=== PATIENT | female | born 1970 | race Caucasian/White ===

== ENCOUNTER → 2019-08-10 | Outpatient (REF) | payer OTHER | LOC: M SFHCWAGY 08:50 | PROVIDERS: ATTEND Nurse Practitioner Women's Health | DX: R87.610 Atypical squamous cells of undetermined significance on cytologic smear of cervix (ASC-US) (principal) ==

== ENCOUNTER → 2019-08-10 | Outpatient (CLI) | payer OTHER ==
--- NOTE | 2019-08-24 15:11 | REPMRS ---
Patient History The patient states she had a clinical breast exam in July 2019. Patient is postmenopausal and is nulliparous. Family history of unknown cancer in father. Digital Woman Screen Mammo: August 10, 2019 - Exam #: [id number] Bilateral CC and MLO view(s) were taken. Technologist: Jasmina Conde, Technologist Prior study comparison: May 01, 2018, bilateral digital woman screen mammo, performed at [facility]. FINDINGS: The breast tissue is almost entirely fat. The Volpara volumetric breast density category is: A. There has been no change in the appearance of the mammogram from the prior studies. There is no interval development of dominant mass, architectural distortion, or grouped microcalcification typical of malignancy. 3-D tomosynthesis shows no additional findings. Assessment: BI-RADS/ACR category 1 mammogram. Negative Mammogram. Recommendation Routine screening mammogram of both breasts in 1 year (for women over age 40). This patient's Lifetime Breast Cancer RIsk is estimated at 12.0 %. This mammogram was interpreted with the aid of an FDA-approved computer-aided dectection system. Electronically Signed By: Edison Jain MD 08/24/19 2803
== END ==
LOC: M WHC 15:05
PROVIDERS: ATTEND Nurse Practitioner Women's Health
DX: Z12.31 Encounter for screening mammogram for malignant neoplasm of breast (principal); Z78.0 Asymptomatic menopausal state; Z80.8 Family history of malignant neoplasm of other organs or systems

== ENCOUNTER → 2020-04-25 | Outpatient (CLI) | payer OTHER ==
[~2020-04-25] MED LIST: GASTROGRAFIN SOLUTION 30ML (Q9963) As Ordered ONE; ISOVUE-370 76% 100ML VIAL As Ordered ONE
--- NOTE | 2020-04-26 10:47 | REP ---
INDICATION: VENTRAL HERNIA. COMPARISON: None TECHNIQUE: Axial contrast-enhanced images from the lung bases to the pubic symphysis using oral and 100 cc Isovue 370 intravenous contrast material. Coronal and sagittal reformations obtained. This CT examination was performed using the following dose reduction techniques: Automated exposure control, adjustment of mA and/or kv according to the patient's size, and the use of iterative reconstruction technique. FINDINGS: There appears to be eventration of the anterior abdominal wall and possible associated ventral hernia along the right mid to lower abdomen/pelvis which contain fat and nonobstructed bowel. Liver, spleen, pancreas, gallbladder, left kidney and right adrenal gland are normal. Left adrenal gland includes 1.5 cm adenoma. Right kidney suggests small punctate nonobstructing calculi. There is no evidence for bowel obstruction or acute inflammatory process. Pelvis demonstrates normal bladder and age-appropriate uterus/right adnexa. There is a complex septated left adnexal cyst measuring 4.5 x 6.6 x 4.0 cm. No ascites. No free air. No adenopathy. Abdominal aorta without aneurysm or dissection. Skeletal structures demonstrate age-related degenerative changes without acute osseous abnormality. Lung bases are clear. IMPRESSION: 1. Eventration along the right anterior abdominal versus wide ventral hernia contains fat and nonobstructed bowel. No associated inflammatory changes or obstruction noted. 2. 6.6 cm complex septated left adnexal cyst warrants follow-up. 3. Further nonacute findings as described above. <Electronically signed by Andrew Love > 04/26/20 1043
== END ==
LOC: M RAD 10:45
PROVIDERS: ATTEND Internal Medicine Gastroenterology
DX: K43.9 Ventral hernia without obstruction or gangrene (principal)
CPT/HCPCS: 74177; Q9963; Q9967

== ENCOUNTER → 2020-04-28 | Outpatient (CLI) | payer OTHER ==
[~2020-04-28] MED LIST changes: +E-Z-GAS II EFFERVESCENT PACKET (SODIUM BICARB./CITRIC ACID/SIMETHICONE) As Ordered ONE; +E-Z-HD 98% w/w 340GM SUSP BTL As Ordered ONE; +E-Z-PAQUE 96% w/w SUSP 176GM BTL As Ordered ONE; -GASTROGRAFIN SOLUTION 30ML (Q9963) As Ordered ONE; -ISOVUE-370 76% 100ML VIAL As Ordered ONE
--- NOTE | 2020-04-28 17:22 | REP ---
INDICATION: VENTRAL HERNIA, ABD PAIN, EVAL FOR ADHESIONS. COMPARISON: None TECHNIQUE: This procedure was performed by May Draper [facility], under the direct supervision of Dr. Jain. Images were reviewed with Dr. Jain prior to dictation. Liquid barium and gas producing crystals were given in the erect position, as well as liquid barium in the prone oblique position in order to perform a double contrast upper GI examination. Additionally liquid barium was given at the end of the examination in order to perform a small-bowel follow-through. FINDINGS: The vaccines solutions specialist film shows no organomegaly or pathological masses. The intestinal gas pattern is unremarkable. The oral and pharyngeal stages of deglutition were unremarkable. Flash penetration was visualized. Esophageal transport is prompt and efficient and there is no evidence of esophagitis, stricture, or mucosal ring. There is no evidence of a hiatal hernia. There was no gastroesophageal reflux noted . The stomach ruiz are normally outlined. The rugal folds are smooth and regular. There is no gastritis, neoplasm, or ulcerative disease. The duodenal ruiz are normally outlined. There is a diverticulum of the 3rd portion of the duodenum. The mucosal folds are smooth and regular. There is no duodenitis, peptic ulcer disease or neoplasm. The visualized portion of the proximal small bowel appears normal in course and caliber. The barium column was followed through the small bowel to the level of the terminal ileum. Small bowel transit time is approximately 150 minutes. During fluoroscopy gentle palpation shows all loops are freely movable and pliable. There is no fixed angulated loops. The small bowel mucosal pattern is normal in course and caliber. There is no transition to suggest a partial small bowel obstruction. Spot filming of the terminal ileum shows it to be unremarkable. IMPRESSION: 1. Flash penetration. 2. 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 3. Unremarkable small bowel follow-through. 0.5 minutes of fluoroscopy time was utilized for this procedure. Some fluoroscopic images are performed with last image hold technology. These images require no additional radiation. <Electronically signed by May Draper > 04/28/20 1600 <Electronically signed by Edison Jain > 04/28/20 1575
== END ==
LOC: M RAD 07:54
PROVIDERS: ATTEND Internal Medicine Gastroenterology
DX: K43.9 Ventral hernia without obstruction or gangrene (principal)

== ENCOUNTER → 2020-06-19 | Outpatient (CLI) | payer OTHER ==
--- NOTE | 2020-06-19 16:33 | REP ---
INDICATION: OTHER OVARIAN CYST, LEFT SIDE/ LABS 1ST. COMPARISON: Abdomen/pelvis CT dated 04/25/2020 and identified a left adnexal cyst. TECHNIQUE: Multiple sonographic images of the pelvis including transabdominal, endovaginal and Doppler ultrasound. FINDINGS: The uterus is anteverted and small size measuring 4.9 x 2.4 x 2.4 cm. The endometrium is not thickened measuring 3.7 mm. Right ovary: The right ovary is normal size measuring 2.4 x 1.3 x 1.0 cm. There are no dominant right ovarian mass or cyst. Left ovary: The left ovary is enlarged measuring 6.7 x 2.9 x 5.5 cm. The left ovary contains a large complex multi septated cyst measuring 5.7 x 2.2 x 5.2 cm. There is no free fluid in the pelvis. There is vascular flow in both ovaries with Doppler evaluation. The Doppler resistive index in the parenchymal arteries of the right ovary is 0.56 and left ovary 0.67. IMPRESSION: Large complex left adnexal cyst containing septations maximally measuring 5.7 cm. <Electronically signed by Andrew Borja > 06/19/20 1909
== END ==
LOC: M LAB 13:57
PROVIDERS: ATTEND Obstetrics & Gynecology
DX: N83.292 Other ovarian cyst, left side (principal)

== ENCOUNTER → 2020-07-06 | Outpatient (CLI) | payer OTHER ==
--- NOTE | 2020-07-06 12:06 | REP ---
INDICATION: DDD, THORACIC PAIN. COMPARISON: CT abdomen pelvis 04/25/2020 TECHNIQUE: Sagittal T1, T2, stir images of the lumbar spine are obtained. Axial T1 and T2 weighted images obtained. FINDINGS: On the sagittal T2 weighted images, there is [id number] multilevel degenerative disc disease, appears slightly more progressed at the L5-S1 level. Vertebral heights are overall preserved. No malalignments. On the sagittal T2 weighted images, the conus ends normally at L1 level. There is no significant canal stenosis at lumbar levels. On the review of axial images, At L1-2 through L3-4 no significant canal or foraminal narrowing. At L4-5 global disc bulge with mild bilateral foraminal narrowing and no significant canal stenosis. At L5-S1 loss of disc height with moderate bilateral foraminal narrowing that appears greater on the right. No significant canal stenosis at this level. IMPRESSION: Mild, multilevel degenerative disc disease. No limiting canal stenosis or high-grade foraminal stenosis. At L5-S1 loss of disc height with moderate bilateral foraminal narrowing that appears greater on the right. <Electronically signed by Anderson Greenberg > 07/06/20 [id number]
== END ==
LOC: M RAD 09:20
PROVIDERS: ATTEND Physician Assistant
DX: M51.37 Other intervertebral disc degeneration, lumbosacral region (principal)

== ENCOUNTER → 2020-07-06 | Outpatient (CLI) | payer OTHER ==
--- NOTE | 2020-07-06 12:03 | REP ---
INDICATION: PAIN IN THORACIC SPINE. COMPARISON: None. TECHNIQUE: Sagittal T1, T2, stir images of the thoracic spine are obtained. Axial T1 and T2 weighted images are obtained. FINDINGS: There is [id number] multilevel degenerative disc disease with loss of disc height and disc desiccation seen diffusely throughout the thoracic spine. Vertebral heights are overall preserved. No malalignments. On the sagittal T2 weighted images, no limiting canal stenosis. Thoracic cord appears normal in its course, caliber and signal characteristics. On the review of axial images, there are shallow disc protrusions at midthoracic level, greater on the left, which mildly narrow the central canal but no significant impingement of the thoracic cord, and no definite limiting foraminal stenosis or focal disc herniation. IMPRESSION: No acute findings. No disc herniations, no limiting canal or foraminal stenosis. <Electronically signed by Anderson Greenberg > 07/06/20 1155
== END ==
LOC: M RAD 09:18
PROVIDERS: ATTEND Physician Assistant
DX: M51.37 Other intervertebral disc degeneration, lumbosacral region (principal)

== ENCOUNTER → 2020-07-25 | Outpatient (CLI) | payer OTHER ==
--- NOTE | 2020-07-25 09:31 | REP ---
INDICATION: OVARIAN CYST. COMPARISON: 06/19/2020 TECHNIQUE: Transvesical and transvaginal imaging FINDINGS: The uterus measures 4.4 x 2.1 x 2.6 cm. The parenchymal echo pattern is unchanged. The endometrial echo complex measures 8 mm in its greatest thickness. Right ovary measures 2.1 x 1.2 x 1.1 cm and is within normal limits. Left ovary measures 6.6 x 2.7 x 6.3 cm. Within the left adnexa there is a complex 5.9 x 2.5 x 5.2 cm sized cystic mass. The urinary bladder was empty and could not be measured IMPRESSION: Complex left adnexal cystic mass essentially unchanged. <Electronically signed by Benson Ayers > 07/25/20 0927
== END ==
LOC: M RAD 08:27
PROVIDERS: ATTEND Obstetrics & Gynecology
DX: N83.292 Other ovarian cyst, left side (principal)

== ENCOUNTER → 2020-11-30 | Outpatient (CLI) | payer OTHER ==
[~2020-11-30] MED LIST changes: -E-Z-GAS II EFFERVESCENT PACKET (SODIUM BICARB./CITRIC ACID/SIMETHICONE) As Ordered ONE; -E-Z-HD 98% w/w 340GM SUSP BTL As Ordered ONE; -E-Z-PAQUE 96% w/w SUSP 176GM BTL As Ordered ONE; +GASTROGRAFIN SOLUTION 30ML (Q9963) As Ordered ONE; +ISOVUE-370 76% 100ML VIAL As Ordered ONE
--- NOTE | 2020-12-01 08:43 | REP ---
INDICATION: ABD PAIN. COMPARISON: 04/25/2020 TECHNIQUE: Axial contrast-enhanced images from the lung bases to the pubic symphysis using oral and 100 cc Isovue 370 intravenous contrast material. Coronal and sagittal reformations obtained. This CT examination was performed using the following dose reduction techniques: Automated exposure control, adjustment of mA and/or kv according to the patient's size, and the use of iterative reconstruction technique. FINDINGS: Liver demonstrates mild fatty infiltration. The adrenal glands demonstrate small stable benign adenomas. Spleen, pancreas, gallbladder, and kidneys are normal. 3 mm nonobstructing right renal calculus is suspected. The current examination demonstrates relatively recent postoperative changes in the midline subcutaneous tissue including small amount of fluid, inflammatory stranding and granulation tissue. There is a moderate to large new right lateral ventral hernia (spigelian hernia) containing nonobstructed loops of small and large bowel. Remainder of the enteric system is without obstruction or acute inflammatory process. Normal terminal ileum and appendix are identified in the right lower quadrant. Evidence for prior partial sigmoid resection. Pelvis demonstrates normal bladder and age-appropriate uterus/right adnexa. Tubular cystic structure in the left adnexa is again noted and may represent hydrosalpinx. No ascites. No free air. No intraperitoneal or retroperitoneal adenopathy. Abdominal aorta and vasculature appear normal. Musculoskeletal structures are intact and without acute osseous abnormality. IMPRESSION: 1. Postsurgical changes in the midline anterior abdominal wall with small amount of fluid. Correlation and follow-up is recommended to exclude the possibility of forming small phlegmon/abscess. 2. New right lateral ventral (spigelian) hernia containing nonobstructed loops of small and large bowel. 3. Stable tubular structure in the left adnexa suggesting hydrosalpinx. <Electronically signed by Andrew Love > 12/01/20 0402
== END ==
LOC: M RAD 12:11
PROVIDERS: ATTEND Family Medicine Addiction Medicine
DX: R10.9 Unspecified abdominal pain (principal)
CPT/HCPCS: 74177; Q9963; Q9967

== ENCOUNTER → 2021-01-26 | Outpatient (CLI) | payer OTHER ==
--- NOTE | 2021-01-26 14:49 | REP ---
INDICATION: OTH OVARIAN CYST LT SIDE. COMPARISON: 07/25/2020 TECHNIQUE: Transvesical and transvaginal imaging FINDINGS: The uterus measures 3.5 x 2.1 x 2.2 cm and is unchanged. The endometrial echo complex measures 2 mm in thickness and is unchanged. The right ovary measures 1.9 x 1.2 x 2 cm and is unchanged with an RI 0.43 The left ovary was not visualized transvesical air transvaginally. Large serpiginous appearing tubular shaped nearly anechoic structures are seen in the left adnexa. Urinary bladder was empty IMPRESSION: The left ovary was not visualized on today's exam, however, tubular structures in the left adnexa as described above somewhat concerning for hydrosalpinx. <Electronically signed by Benson Ayers > 01/26/21 1305
== END ==
LOC: M RAD 11:57
PROVIDERS: ATTEND Obstetrics & Gynecology
DX: N83.292 Other ovarian cyst, left side (principal)

== ENCOUNTER → 2021-06-05 | Outpatient (CLI) | payer OTHER | LOC: M WHC 14:17 | PROVIDERS: ATTEND Family Medicine Addiction Medicine | DX: Z12.31 Encounter for screening mammogram for malignant neoplasm of breast (principal) ==